=== PATIENT | female | born 1970 | race Caucasian/White ===

== ENCOUNTER 2019-01-03 12:08 | Emergency (ER) | payer OTHER ==
[~2019-01-03] VITALS: Ht 167.6 cm; Wt 68.0 kg
[~2019-01-03 12:08] MED LIST: ADVAIR 2501 DISK W/1 IH; CEFTIN250 MG PO; CEFTIN500 MG PO; GILTUSS LIQUID237 M1 PO; LEVAQUIN500 MG PO; OSEL75CA PO; PROVENTIL3 ML/2.5 M IH; PYRIDIUM DS200 MG PO; PYRIDIUM200 MG PO; SINGULAIR 10MG10 MG PO; URIN D.S. TABLE1 TAB PO
== END 2019-01-03 14:39 | disposition home or self-care (01) ==
LOC: ER 12:08
DX: S60.022A Contusion of left index finger without damage to nail, initial encounter (principal); S60.222A Contusion of left hand, initial encounter; W23.0XXA Caught, crushed, jammed, or pinched between moving objects, initial encounter; Y93.89 Activity, other specified; Y92.89 Other specified places as the place of occurrence of the external cause; Y99.8 Other external cause status

== ENCOUNTER 2023-01-17 22:58 | Emergency (ER) | payer OTHER ==
[~2023-01-17] VITALS: Ht 165.1 cm; Wt 68.0 kg
[2023-01-17] MEDS ORDERED: ESCITALOPRAM OX10 MG PO (23:39)
== END 2023-01-18 06:13 | disposition home or self-care (01) ==
LOC: ER 22:58
DX: G43.909 Migraine, unspecified, not intractable, without status migrainosus (principal); R11.10 Vomiting, unspecified; I10 Essential (primary) hypertension